=== PATIENT | male | born 1945 | race Caucasian/White ===

== ENCOUNTER → 2019-10-24 | Emergency (ER) | payer OTHER ==
[~2019-10-24] VITALS: Ht 167.6 cm; Wt 79.4 kg
[~2019-10-24] MED LIST: ASA81 MG PO; LIPITOR20 MG PO
== END | disposition left against medical advice (07) ==
LOC: ER 13:50
DX: Z53.20 Procedure and treatment not carried out because of patient's decision for unspecified reasons (principal)